=== PATIENT | female | born 1985 | race Caucasian/White ===

== ENCOUNTER 2018-03-04 06:50 | Day surgery (SDC) | payer OTHER ==
[2018-03-04] MEDS ORDERED: LABETALOL HCL 20MG INJ IV (10:00)
[2018-03-04] MEDS ORDERED: DIPHENHYDRAMINE 50 MG INJ IV (10:00)
[2018-03-04] MEDS ORDERED: ONDANSETRON 4 MG INJ IV (10:00)
[2018-03-04] MEDS ORDERED: ALBUTEROL 0.083% (NEB) 2.5 MG/3 ML AMP HHN (10:00)
[2018-03-04] MEDS ORDERED: morphine (1 MG/ML) 10ML SYRINGE IV ×2 (10:00)
[2018-03-04] MEDS ORDERED: FENTAnyl 50 MCG/ML VIAL IV (10:00)
[2018-03-04] MEDS ORDERED: OXYCODONE/ACETAMINOPHEN (5/325) TAB PO ×2 (10:00)
[2018-03-04] MEDS ORDERED: MEPERIDINE 25 MG INJ IV (10:00)
[2018-03-04] MEDS ORDERED: HYDROmorphONE 1 MG/5 ML IV SYRINGE IV ×2 (10:00)
[2018-03-04] MEDS ORDERED: PROPOFOL 40 ML (11:01)
[2018-03-04] MEDS ORDERED: MIDAZOLAM 1 MG/ML 2 ML INJ (11:01)
[2018-03-04] MEDS ORDERED: FAMOTIDINE 20 MG INJ (11:02)
[2018-03-04] MEDS ORDERED: DEXAMETHASONE 4 MG/ML 1 ML INJ (11:02)
[2018-03-04] MEDS ORDERED: ACETAMINOPHEN 1000MG/100ML IV 100 ML (11:03)
[2018-03-04] MEDS ORDERED: ROCURONIUM 50 MG INJ (11:03)
[2018-03-04] MEDS ORDERED: ONDANSETRON 4 MG INJ (11:03)
[2018-03-04] MEDS ORDERED: LIDOCAINE 2% (SDV) 5 ML INJ (11:03)
[2018-03-04] MEDS ORDERED: FENTAnyl 50 MCG/ML VIAL ×2 (11:04→11:15)
[2018-03-04] MEDS ORDERED: SUGAMMADEX SODIUM 200 MG/2 ML VIAL IV (11:08)
[2018-03-04] MEDS ORDERED: CEFAZOLIN 1 GM INJ (11:15)
[2018-03-04] MEDS ORDERED: ACETAMINOPHEN 325 MG TAB PO (12:00)
[2018-03-04] MEDS: FENTAnyl 50 MCG/ML VIAL IV (12:09)
== END 2018-03-04 13:35 | disposition home or self-care (01) ==
LOC: SDS 06:50
DX: Z30.2 Encounter for sterilization (principal); D25.9 Leiomyoma of uterus, unspecified
CPT/HCPCS: 58670; 84703; 86850; 86900; 86901